=== PATIENT | male | born 1930 | race Caucasian/White ===

== ENCOUNTER → 2016-07-20 | Outpatient (CLI) | payer MEDICARE, BC ==
[~2016-07-20] MED LIST: ATOR20TA18 PO; ENOX30DI SQ; HYDR-4 PO; LEVO50TA69 PO; LOSA50TA52 PO; METO100T60 PO; METO50TA78 PO; OMEP-29 PO; SIMV80TA62 PO; TERA2CAP PO; WARF3TAB27 PO
--- NOTE | 2016-07-21 09:17 | DI ---
Indication: ITS.REASON: S32.000A LUMBAR COMPRESSION FX; M54.9 BACK PAIN PROCEDURE: MRI LUMBAR SPINE W/O CONTRAST: Encounter: Initial Comparison: None Technique: Multiplanar multisequence MR imaging of the lumbar spine was performed without contrast. Findings: Alignment lumbar spine is abnormal with reversal of the normal lordosis and focal kyphosis centered at L2-L3. There are severe compression fractures of L2, L3 and L4 with approximately 60% height loss at L2 and 75% height loss at L3 and L4. The L4 fracture is acute with adjacent bone marrow edema throughout the vertebra. The other fractures appear chronic. No additional acute fractures are seen. The conus medullaris terminates normally at L1. The paraspinal soft tissues show tiny probable renal cysts but no acute findings. Segmental analysis: L1-L2: No significant disk herniation, central canal or neural foraminal stenosis. L2-L3: Chronic retropulsion of the L2 and L3 endplates resulting in mild central canal narrowing. No focal disk herniation or neural foraminal stenosis. L3-L4: No focal disk herniation or central canal stenosis. No significant neural foraminal stenosis. L4-L5: No significant retropulsion of the fracture. No focal disk herniation or central canal stenosis. Mild bony left neural foraminal stenosis. Degenerative facet disease. L5-S1: Small central disk protrusion without central canal stenosis. Degenerative facet disease contributing to mild left neural foraminal stenosis. No significant right foraminal narrowing. 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 Impression: Acute appearing severe compression fracture of L4. .
== END ==
LOC: IMA 17:29
PROVIDERS: ATTEND Physician Assistant Medical
DX: S32.040A Wedge compression fracture of fourth lumbar vertebra, initial encounter for closed fracture (principal); M54.5 Low back pain